=== PATIENT | female | born 2000 ===

== ENCOUNTER 2019-05-15 15:37 | Emergency (ER) | payer BC ==
--- NOTE | 2019-05-15 15:47 | UC ---
Head Injury HPI - HPI Summary HPI Summary: 19 yo female presents with head injury. She tells me that on 05/11/19 she was skateboarding and fell backwards hitting the back of her head on the pavement. She was not wearing a helmet. No LOC. She didn't have much pain at the time. Went back to school on saturday 05/12 and since that time has noticed increased headaches, difficulty concentrating, and intermittent blurry vision when trying to study. She has not taken anything OTC for her symptoms. Symptoms are better with rest and being outside of the classroom. Denies dizziness, numbness, tingling, SOB, chest pain, abdominal pain, vomiting. - History Of Current Complaint Stated Complaint: HEAD INJURY Time Seen by Provider: 05/15/19 15:47 Hx Obtained From: Patient Onset/Duration: Sudden Onset Severity Currently: Moderate Severity Initially: Mild Pain Intensity: 4 Pain Scale Used: 0-10 Numeric - Allergies/Home Medications Allergies/Adverse Reactions: Allergies Allergy/AdvReac Type Severity Reaction Status Date / Time No Known Allergies Allergy Verified 05/15/19 15:48 Home Medications: Home Medications Venlafaxine ER (NF) [Effexor ER (NF)] 150 mg PO DAILY 05/15/19 [History Confirmed 05/15/19] PMH/Surg Hx/FS Hx/Imm Hx Psychological History: Anxiety, Depression - Surgical History Surgical History: None - Family History Known Family History: Positive: None - Social History Occupation: Student Lives: Dormitory/Roommates Alcohol Use: Occasionally Substance Use Type: None Smoking Status (MU): Never Smoked Tobacco Review of Systems All Other Systems Reviewed And Are Negative: No Constitutional: Positive: Negative Skin: Positive: Negative Eyes: Positive: Negative ENT: Positive: Negative Respiratory: Positive: Negative Cardiovascular: Positive: Negative Gastrointestinal: Positive: Nausea Genitourinary: Positive: Negative Motor: Positive: Negative Neurovascular: Positive: Negative Musculoskeletal: Positive: Negative Neurological: Positive: Headache Psychological: Positive: Negative Physical Exam - Summary Physical Exam Summary: GENERAL: NAD. WDWN. No pain distress. SKIN: No rashes, sores, ulcers, masses, lesions. HEENT: Head: AT/NC. No raccoon eyes or battles sign. Eyes: PERRLA. EOM intact. Conjunctiva clear without inflammation or discharge. Ears: Hearing grossly normal. TMs intact, no bulging, erythema, or edema. No hemotympanum Nose: Nasal mucosa pink and moist. NTTP maxillary and frontal sinus. Throat: Posterior oropharynx without exudates, erythema, or tonsillar enlargement. Uvula midline. NECK: Supple. Nontender. FROM CHEST: CTAB. No r/r/w. No accessory muscle use. Breathing comfortably and in no distress. CV: RRR. Pulses intact. Brisk cap refill. ABDOMEN: Soft. NTTP. Bowel sounds present MSK: FROM in B/L UEs and LEs with symmetric strength. NEURO: A&Ox3. 3 word recall, remote, recent memory, ability to follow 2-step directions, and attention intact. CN: II: Peripheral awad intact. Vision normal. III, IV, : EOMI. No nystagmus. PERRLA. V: Sensations intact and symmetric. Opens mouth and clenches teeth. VII: No facial asymmetry. Forehead wrinkles. Grins, shuts eyes, frowns, puffs cheeks. VIII: Hearing intact to finger rub. IX, X: Swallows and coughs. Uvula midline. XI: Shrugs shoulders. Turns head against resistance. XII: No tongue deviation [id number] are intact. Gait with normal base. Romberg: maintains balance, no pronator drift. Normal speech. No facial drooping. PSYCH: Age appropriate behavior. Triage Information Reviewed: Yes Vital Signs: Vital Signs: Temp Pulse Resp BP Pulse Ox 96.1 F 79 18 130/88 100 05/15/19 15:43 05/15/19 15:43 05/15/19 15:43 05/15/19 16:04 05/15/19 15:43 Vital Signs: Temp Pulse Resp BP Pulse Ox 96.1 F 79 18 130/88 100 05/15/19 15:43 05/15/19 15:43 05/15/19 15:43 05/15/19 16:04 05/15/19 15:43 Vital Signs Reviewed: Yes Diagnostics - Radiology Brain CT Radiology Interpretation Completed By: Radiologist Summary of Radiographic Findings: IMPRESSION: 1. NO EVIDENCE FOR ACUTE INTRACRANIAL ABNORMALITY. 2. MUCOSAL THICKENING WITHIN THE SPHENOID SINUS CONSISTENT WITH SINUSITIS IN THE CORRECT CLINICAL SETTING. Head Injury Course/Dx - Course Course Of Treatment: CT as above. Suspect mild concussion. Advised to practice mental and physical rest. May take tylenol/ibuprofen as directed for headache. Recheck in 1 week by [facility] - Differential Dx/Diagnosis Provider Diagnosis: Head injury Discharge ED - Sign-Out/Discharge Documenting (check all that apply): Patient Departure All imaging exams completed and their final reports reviewed: Yes - Discharge Plan Condition: Stable Disposition: HOME Patient Education Materials: Concussion (ED) Referrals: No Primary Care Phys,NOPCP [Primary Care Provider] - Additional Instructions: Your head CT was normal today Treatment of a concussion include: Preventing further injury Most concussions get better on their own. While you are healing, it's important that you not do too much and not play any organized sports. Physical rest You should rest for 24 to 48 hours. After that, you can slowly start to get back to regular activities. This includes light physical activity, as long as it doesn't make symptoms worse. You should continue to avoid contact sports, or other sports that could cause a head injury, until you have completely recovered. Mental rest Doctors also call this "cognitive rest." It involves avoiding things that make symptoms worse, such as reading, playing video games, or using a smartphone, tablet, or computer. Treating symptoms In addition to rest, there are ways to help relieve your symptoms. For example: Headache If you have a headache, you may take acetaminophen (sample brand name : Tylenol) and NSAIDs such as ibuprofen (sample brand names: Advil, Motrin) and naproxen (sample brand name: Aleve). These medicines should only be used for a few days and taken as directed. - Billing Disposition and Condition Condition: STABLE Disposition: Home
[2019-05-15 16:04] VITALS: BP 130/88
== END 2019-05-15 16:38 | disposition home or self-care (01) ==
LOC: UCEAST 15:37
DX: S09.90XA Unspecified injury of head, initial encounter (principal); F41.9 Anxiety disorder, unspecified; F32.9 Major depressive disorder, single episode, unspecified; Z79.899 Other long term (current) drug therapy; V00.131A Fall from skateboard, initial encounter; Y93.51 Activity, roller skating (inline) and skateboarding; Y92.9 Unspecified place or not applicable
CPT/HCPCS: 70450; 99201; G0463